=== PATIENT | female | born 1995 | race Two or more races ===

== ENCOUNTER 2018-11-29 13:55 | Emergency (ER) | payer OTHER ==
[~2018-11-29] VITALS: Ht 167.6 cm; Wt 63.5 kg
--- NOTE | 2018-11-29 14:10 | NUR ---
ED Nurse Note: Patient came in with her mother, c/o "anxiety" problem. reports no other issue. slightly tachycardic, 103 noted.
[2018-11-29] MEDS ORDERED: LORazepam 1mg tab ORAL ONE (14:15)
--- NOTE | 2018-11-29 15:20 | NUR ---
ED Nurse Note: urine collected, sent down to the lab
[2018-11-29 15:24] VITALS: BP 126/68
[2018-11-29 15:28] LABS: APPEARANCE,URINE CLEAR; BILIRUBIN, URINE NEGATIVE (NEGATIVE); COLOR,URINE PALE YELLOW; GLUCOSE, URINE (UA) NEGATIVE (NEGATIVE); KETONES,URINE NEGATIVE (NEGATIVE); LEUKOCYTE ESTERASE ,URINE NEGATIVE (NEGATIVE); NITRITE,URINE NEGATIVE (NEGATIVE); PH,URINE 8 (4.5-8.0); PROTEIN,URINE NEGATIVE (NEGATIVE); UROBILINOGEN,URINE NORMAL MG/DL (0.0-1.0)
--- NOTE | 2018-11-29 15:40 | NUR ---
ED Nurse Note: notified PA regarding urine tox screen result.
[2018-11-29 16:43] LABS: BASOPHILS % (AUTO) 1.3 % (0.0-2.0); EOSINOPHILS % (AUTO) 0.1 % (0.0-3.0); HEMATOCRIT 39.5 % (37.0-47.0); HEMOGLOBIN 13.8 G/DL (12.0-16.0); LYMPHOCYTES % (AUTO) 27.8 % (20.0-45.0); MEAN CORPUSCULAR VOLUME 91 FL (80-99); MONOCYTES % (AUTO) 8.1 % (1.0-10.0); NEUTROPHILS % (AUTO) 62.7 % (45.0-75.0); PLATELET COUNT 279 K/UL (150-450); RED BLOOD COUNT 4.36 M/UL (4.20-5.40); RED CELL DISTRIBUTION WIDTH 10.5 % (11.6-14.8); WHITE BLOOD COUNT 9.3 K/UL (4.8-10.8)
[2018-11-29 16:49] LABS: ANION GAP 12 mmol/L (5-15); BLOOD UREA NITROGEN 5 mg/dL (7-18); CALCIUM 9.8 MG/DL (8.5-10.1); CARBON DIOXIDE 23 MMOL/L (21-32); CHLORIDE 106 MMOL/L (98-107); CREATININE 0.8 MG/DL (0.55-1.30); POTASSIUM 3.9 MMOL/L (3.5-5.1); SODIUM 140 MMOL/L (136-145)
--- NOTE | 2018-11-29 17:31 | Emergency Room Report ---
History of Present Illness General Chief Complaint: General Complaint Source: Patient Present Illness HPI 23 YO Female presents to the ED c/o severe anxiety that has been progressive x 2 months s/p miscarriage. pt. reports that for the past week she has developed significant hypochondriac tendencies and has been having insomnia with sleep anxiety. pt states she just got a therapist and saw her yesterday. pt. states she is in the process of obtaining a psychiatrist. pt. reports having a negative test last night and a positive one this am. pt. states she has been having a lot of nausea lately. she Denies abdominal pain or vaginal bleeding. She states she is not currently taking any control. Denies night sweats or significant changes in weight. Denies family medical history of thyroid disorders. she denies illicit drug use. Allergies: Coded Allergies: No Known Allergies (Unverified , 11/29/18) Patient History Past Medical History: see triage record Past Surgical History: none Pertinent Family History: none Now: No Reviewed Nursing Documentation: PMH: Agreed; PSxH: Agreed Nursing Documentation-PMH Past Medical History: No History, Except For Review of Systems All Other Systems: negative except mentioned in HPI Physical Exam Vital Signs Date Time Temp Pulse Resp B/P (MAP) Pulse Ox O2 Delivery O2 Flow Rate FiO2 11/29/18 14:01 98.8 130 21 126/68 97 Room Air Sp02 EP Interpretation: reviewed, normal General Appearance: no apparent distress, alert, GCS 15, non-toxic Head: normocephalic, atraumatic Eyes: bilateral eye normal inspection, bilateral eye PERRL ENT: hearing grossly normal, normal voice Neck: full range of motion, thyroid normal Respiratory: chest non-tender, lungs clear, normal breath sounds, speaking full sentences Cardiovascular #1: regular rate, rhythm, tachycardia Gastrointestinal: non tender, soft Rectal: deferred Genitourinary: normal inspection, no CVA tenderness Musculoskeletal: back normal, gait/station normal, normal range of motion, non- tender Neurologic: alert, oriented x3, responsive, motor strength/tone normal, sensory intact, speech normal, grossly normal Psychiatric: judgement/insight normal Skin: normal color, no rash, warm/dry, well hydrated Medical Decision Making PA Attestation Dr. cyr is my supervising Physician whom patient management has been discussed with. Dr. cyr is my supervising Physician whom patient management has been discussed with. Diagnostic Impression: Primary Impression: Anxiety-like symptoms Additional Impressions: Insomnia due to anxiety and fear Positive blood test ER Course 23 YO Female presents to the ED c/o severe anxiety that has been progressive x 2 months s/p miscarriage. pt. reports that for the past week she has developed significant hypochondriac tendencies and has been having insomnia with sleep anxiety. pt states she just got a therapist and saw her yesterday. pt. states she is in the process of obtaining a psychiatrist. pt. reports having a negative test last night and a positive one this am. pt. states she has been having a lot of nausea lately. she Denies abdominal pain or vaginal bleeding. She states she is not currently taking any control. Denies night sweats or significant changes in weight. Denies family medical history of thyroid disorders. she denies illicit drug use. Ddx considered but are not limited to anxiety, [place], PE, asthma, thyroid storm, hyperthyroid, EPS, just to name a few. Vital signs: are WNL, pt. is afebrile H&PE are most consistent with anxiety attack ORDERS: - UDS: all negative -Basic labs- CBC, BMP: unremarkable - Hcg Quant: 6 -TSH: WNL -UA: unremarkable ED INTERVENTIONS: -Discussed with patient need for repeat hCG quantitative analysis is to establish a trend of whether this numbers going up or down difficult to determine as patient states she did have negative urine last night and a positive one this morning. Discussed the patient she needs to follow-up with [facility] within 3 days she verbalizes her agreement and understanding of this plan. In the meantime patient will be prescribe small quantity of medication that is commonly used off label for treatment of anxiety during . DISCHARGE: At this time pt. is stable for d/c to home. Will provide printed patient care instructions, and any necessary prescriptions. Care plan and follow up instructions have been discussed with the patient prior to discharge. Labs Test 11/29/18 15:03 11/29/18 16:14 Urine Color Pale yellow Urine Appearance Clear Urine pH 8 (4.5-8.0) Urine Specific [place] 1.010 (1.005-1.035) Urine Protein Negative (NEGATIVE) Urine Glucose (UA) Negative (NEGATIVE) Urine Ketones Negative (NEGATIVE) Urine Blood Negative (NEGATIVE) Urine Nitrite Negative (NEGATIVE) Urine Bilirubin Negative (NEGATIVE) Urine Urobilinogen Normal MG/DL (0.0-1.0) Urine Leukocyte Esterase Negative (NEGATIVE) Urine Opiates Screen Negative (NEGATIVE) Urine Barbiturates Screen Negative (NEGATIVE) Phencyclidine (PCP) Screen Negative (NEGATIVE) Urine Amphetamines Screen Negative (NEGATIVE) Urine Benzodiazepines Screen Negative (NEGATIVE) Urine Cocaine Screen Negative (NEGATIVE) Urine Marijuana (THC) Screen Negative (NEGATIVE) White Blood Count 9.3 K/UL (4.8-10.8) Red Blood Count 4.36 M/UL (4.20-5.40) Hemoglobin 13.8 G/DL (12.0-16.0) Hematocrit 39.5 % (37.0-47.0) Mean Corpuscular Volume 91 FL (80-99) Mean Corpuscular Hemoglobin 31.8 PG (27.0-31.0) Mean Corpuscular Hemoglobin Concent 35.1 G/DL (32.0-36.0) Red Cell Distribution Width 10.5 % (11.6-14.8) Platelet Count 279 K/UL (150-450) Mean Platelet Volume 6.2 FL (6.5-10.1) Neutrophils (%) (Auto) 62.7 % (45.0-75.0) Lymphocytes (%) (Auto) 27.8 % (20.0-45.0) Monocytes (%) (Auto) 8.1 % (1.0-10.0) Eosinophils (%) (Auto) 0.1 % (0.0-3.0) Basophils (%) (Auto) 1.3 % (0.0-2.0) Sodium Level 140 MMOL/L (136-145) Potassium Level 3.9 MMOL/L (3.5-5.1) Chloride Level 106 MMOL/L (98-107) Carbon Dioxide Level 23 MMOL/L (21-32) Anion Gap 12 mmol/L (5-15) Blood Urea Nitrogen 5 mg/dL (7-18) Creatinine 0.8 MG/DL (0.55-1.30) Estimat Glomerular Filtration Rate > 60 mL/min (>60) Glucose Level 138 MG/DL (74-106) Calcium Level 9.8 MG/DL (8.5-10.1) Thyroid Stimulating Hormone (TSH) 0.955 uiU/mL (0.358-3.740) Human Chorionic Gonadotropin, Quant 6 mIU/mL (1-6) EKG Diagnostic Results EP Interpretation: Dr. Duff Rate: normal - 81 bpm Rhythm: NSR ST Segments: no acute changes ASA given to the pt in ED: No PA Scribe Text This Interpretation was scribed by VIN Alicia. Last Vital Signs Date Time Temp Pulse Resp B/P (MAP) Pulse Ox O2 Delivery O2 Flow Rate FiO2 11/29/18 15:24 98.8 103 21 126/68 97 Room Air Disposition: HOME, SELF-CARE Condition: Stable Scripts Vit #91/Fe Fum/Fa/Dha ( + DHA COMBO PACK) 1 Each Combo..pkg 1 EACH PO DAILY, #1 PACK 2 Refills Prov: Jayla Alicia 11/29/18 Hydroxyzine Pamoate (VISTARIL) 25 Mg Capsule 25-50 MG PO QHS, #20 CAP Prov: Jayla Alicia 11/29/18 Referrals: [facility],REFERR[facility] (PCP) Patient Instructions: Generalized Anxiety Disorder Additional Instructions: Take medications as directed. Follow up with a OBGYN within 3-5 days, even if your symptoms have resolved. Also with psychiatry within 3-5 days Return sooner to ED if new symptoms occur, or current symptoms become worse. Do not drive, drink alcohol or use marijuana products while taking Vistaril/ hydroxyzine, as this may cause significant drowsiness, and impaired judgment. - Please note that this Emergency Department Report was dictated using [employer] mixer technology software, occasionally this can lead to erroneous entry secondary to interpretation by the dictation equipment. Jayla Alicia Nov 29, 2018 17:30
[2018-11-29] MEDS ORDERED: VISTARIL25 M1 PO (17:34)
[2018-11-29] MEDS ORDERED: PRENATAL + DHA1 EAC1 PO (17:34)
[2018-11-29 17:47] VITALS: BP 126/68
--- NOTE | 2018-11-29 17:47 | NUR ---
ED Nurse Note: Patient is cleared by ER VIN Alicia discharge information/paper/prescription given, patient verbalized understanding, patient signed discharge paper. ID band removed. IV removed without complication Patient ambulated out of ED steady gait with her mother/boyfriend
== END 2018-11-29 17:47 | disposition home or self-care (01) ==
LOC: EMR 14:45
DX: F41.8 Other specified anxiety disorders (principal); G47.09 Other insomnia; Z32.01 Encounter for pregnancy test, result positive
CPT/HCPCS: 36415; 80048; 80307; 81003; 84443; 84702; 85025; 93005; 99284